=== PATIENT | female | born 1975 | race Caucasian/White ===

== ENCOUNTER 2021-04-15 10:08 | Inpatient (IN) | payer OTHER ==
[2021-04-14 11:21] LABS: BASOPHILS % (AUTO) 1 % (0-1); EOSINOPHILS % (AUTO) 3 % (1-7); LYMPHOCYTES % (AUTO) 27 % (22-44); MEAN CORPUSCULAR HEMOGLOBIN 32.7 pg (27.0-34.8); MEAN PLATELET VOLUME 8.8 fL (7.4-10.4); MONOCYTES % (AUTO) 8 % (2-9); NEUTROPHILS % (AUTO) 62 % (42-75); PLATELET COUNT 252 x10^3/uL (130-400); RED BLOOD COUNT 5.11 x10^6/uL (3.82-5.3); RED CELL DISTRIBUTION WIDTH 13.2 % (9.6-15.2)
[2021-04-14 11:30] LABS: ALANINE AMINOTRANSFERASE 31 U/L (12-78); ALBUMIN 3.6 g/dL (3.4-5.0); ANION GAP 6 mmol/L (5-15); CALCIUM 8.9 mg/dL (8.5-10.1); CHLORIDE 109 mmol/L (98-107); CREATININE 0.63 mg/dL (0.55-1.02)
[2021-04-14 11:35] LABS: ALKALINE PHOSPHATASE 62 U/L (45-117); BILIRUBIN,TOTAL 0.3 mg/dL (0.2-1.0); TOTAL PROTEIN 7.6 g/dL (6.4-8.2)
[2021-04-14 11:37] LABS: INTERNATIONAL NORMALIZED RATIO 0.97 (0.93-1.1); PROTHROMBIN TIME 10.4 Seconds (9.6-11.5)
[~2021-04-15] VITALS: Ht 175.3 cm; Wt 98.3 kg
[~2021-04-15 10:08] MED LIST: SERT100T PO
[2021-04-15] MEDS ORDERED: CHLORHEXIDINE 15 ML UDC PO ONE (11:00)
[2021-04-15] MEDS ORDERED: CEFOTETAN PMX 2GM/50ML 50 ML IVPB ONE (11:00)
[2021-04-15] MEDS: LACTATED RINGERS 1,000 ML IV SCH ×4 (11:00→23:57)
[2021-04-15] MEDS ORDERED: FENTANYL PF 250 MCG/5ML ONE (11:55)
[2021-04-15] MEDS ORDERED: MIDAZOLAM 1 MG/ML, 2ML ONE (11:55)
[2021-04-15] MEDS ORDERED: ACETAMINOPHEN 325 MG TABLET PO PRN (12:30)
[2021-04-15] MEDS ORDERED: OXYcodone 5 MG/5 ML ORAL.SOL UDC PO PRN (12:30)
[2021-04-15] MEDS ORDERED: MEPERIDINE/PF 25MG/0.5ML IVPush PRN (12:30)
[2021-04-15] MEDS ORDERED: LABETALOL 5MG/ML, 20ML IV PRN (12:30)
[2021-04-15] MEDS ORDERED: PROMETHAZINE 25 MG/ML, 1ML IVPush PRN (12:30)
[2021-04-15] MEDS ORDERED: hydrALAzine 20 MG/ML, 1ML IV PRN (12:30)
[2021-04-15] MEDS ORDERED: ONDANSETRON 2MG/ML, 2ML IVPush PRN ×2 (12:30→16:30)
[2021-04-15] MEDS ORDERED: DIPHENHYDRAMINE 50 MG/ML, 1ML IVPush PRN (12:30)
[2021-04-15] MEDS ORDERED: HYDROmorphone 1 MG/ML, 1ML INJ IVPush PRN (12:30)
[2021-04-15] MEDS ORDERED: METHYLENE BLUE 50 MG/10 ML AMP ONE (13:03)
[2021-04-15] MEDS ORDERED: HEPARIN 1,000 UNITS/ML, 30ML ONE (13:03)
[2021-04-15] MEDS ORDERED: ROCURONIUM 10 MG/ML,10ML ONE (14:01)
[2021-04-15] MEDS ORDERED: SUGAMMADEX 200 MG/2 ML IVPush ONE (14:01)
[2021-04-15] MEDS ORDERED: PROPOFOL 10 MG/ML, 20ML ONE (14:01)
[2021-04-15] MEDS ORDERED: DEXAMETHASONE 4 MG/ML, 1ML ONE (14:01)
[2021-04-15] MEDS ORDERED: ONDANSETRON 2MG/ML, 2ML ONE (14:01)
[2021-04-15] MEDS ORDERED: CEFOTETAN 2 GM ONE (14:01)
[2021-04-15] MEDS ORDERED: FENTANYL PF 100 MCG/2ML ONE (16:19)
[2021-04-15] MEDS ORDERED: OXYcodone 5 MG/5 ML ORAL.SOL UDC ONE (16:19)
[2021-04-15] MEDS: FENTANYL PF 100 MCG/2ML IV PRN ×2 (16:22→16:27)
[2021-04-15] MEDS ORDERED: MEPERIDINE/PF 25MG/ML,1ML ONE (16:26)
[2021-04-15] MEDS ORDERED: DIAZEPAM 5 MG/ML, 2ML ONE (16:26)
[2021-04-15] MEDS ORDERED: morphine SULFATE 10 MG/ML, 1ML IVPush PRN (16:30)
[2021-04-15] MEDS: DIAZEPAM 5 MG/ML, 2ML IVPush PRN ×2 (16:35→16:40)
[2021-04-15] MEDS ORDERED: PROMETHAZINE 25 MG/ML, 1ML ONE (16:39)
[2021-04-15] MEDS ORDERED: METHOCARBAMOL 1000MG/10 ML IV STA (16:48)
[2021-04-15] MEDS ORDERED: HYDROmorphone 2 MG/ML, 1ML ONE (16:53)
[2021-04-15] MEDS ORDERED: POTASSIUM CHLORIDE 20 MEQ in D5%-0.45% NACL 1,000 ML IV SCH (17:58)
[2021-04-15] MEDS ORDERED: METHOCARBAMOL 1,000 MG in DEXTROSE 5% 100 ML IV ONE (18:30)
[2021-04-15] MEDS: KETOROLAC 30 MG/1 ML IVPush SCH (18:56)
[2021-04-15 19:30] VITALS: BP 135/75
[2021-04-15] MEDS: FAMOTIDINE 20 MG/2 ML IV SCH (20:35)
[2021-04-15] MEDS: OXYcodone/APAP 7.5/325MG TABLET PO PRN (22:03)
[2021-04-15] MEDS ORDERED: PROCHLORPERAZINE 5 MG/ML, 2ML IVPush PRN (22:30)
[2021-04-16 00:12] VITALS: BP 135/84
[2021-04-16] MEDS: KETOROLAC 30 MG/1 ML IVPush SCH ×4 (00:48→18:23)
[2021-04-16 04:25] VITALS: BP 153/87
[2021-04-16 04:25] LABS: BASOPHILS % (AUTO) 0 % (0-1); EOSINOPHILS % (AUTO) 0 % (1-7); LYMPHOCYTES % (AUTO) 10 % (22-44); MEAN CORPUSCULAR HEMOGLOBIN 32.9 pg (27.0-34.8); MEAN CORPUSCULAR HGB CONC 34.5 g/dL (32.4-35.8); MEAN PLATELET VOLUME 8.7 fL (7.4-10.4); MONOCYTES % (AUTO) 11 % (2-9); NEUTROPHILS % (AUTO) 79 % (42-75); PLATELET COUNT 240 x10^3/uL (130-400); RED BLOOD COUNT 4.87 x10^6/uL (3.82-5.3); RED CELL DISTRIBUTION WIDTH 12.8 % (9.6-15.2)
[2021-04-16 04:35] LABS: ALBUMIN 3.2 g/dL (3.4-5.0); ANION GAP 8 mmol/L (5-15); CALCIUM 8.8 mg/dL (8.5-10.1); CHLORIDE 104 mmol/L (98-107); CREATININE 0.51 mg/dL (0.55-1.02)
[2021-04-16] MEDS: LACTATED RINGERS 1,000 ML IV SCH ×5 (05:00→20:20)
[2021-04-16 08:22] VITALS: BP 129/79
[2021-04-16] MEDS: FAMOTIDINE 20 MG/2 ML IV SCH ×2 (09:49→20:39)
[2021-04-16 13:13] VITALS: BP 146/92
[2021-04-16] MEDS: OXYcodone/APAP 7.5/325MG TABLET PO PRN (13:48)
[2021-04-16] MEDS ORDERED: KETOROLAC 10MG TABLET PO PRN (14:30)
[2021-04-16] MEDS ORDERED: SIMETHICONE 80 MG CHEW TAB PO PRN (15:30)
[2021-04-16 20:37] VITALS: BP 129/84
[2021-04-16] MEDS: DOCUSATE 100 MG CAPSULE PO SCH (20:41)
[2021-04-17] MEDS: LACTATED RINGERS 1,000 ML IV SCH ×7 (01:00→23:00)
[2021-04-17] MEDS: KETOROLAC 30 MG/1 ML IVPush SCH ×4 (01:12→20:18)
[2021-04-17] MEDS: OXYcodone/APAP 7.5/325MG TABLET PO PRN (01:26)
[2021-04-17 01:31] VITALS: BP 135/87
[2021-04-17 05:47] LABS: BASOPHILS % (AUTO) 1 % (0-1); EOSINOPHILS % (AUTO) 2 % (1-7); LYMPHOCYTES % (AUTO) 30 % (22-44); MEAN CORPUSCULAR HEMOGLOBIN 33.3 pg (27.0-34.8); MEAN CORPUSCULAR HGB CONC 34.7 g/dL (32.4-35.8); MEAN PLATELET VOLUME 8.9 fL (7.4-10.4); MONOCYTES % (AUTO) 15 % (2-9); NEUTROPHILS % (AUTO) 53 % (42-75); PLATELET COUNT 224 x10^3/uL (130-400); RED BLOOD COUNT 4.62 x10^6/uL (3.82-5.3); RED CELL DISTRIBUTION WIDTH 13.1 % (9.6-15.2)
[2021-04-17 07:25] VITALS: BP 134/85
[2021-04-17] MEDS: DOCUSATE 100 MG CAPSULE PO SCH ×2 (08:10→20:19)
[2021-04-17] MEDS: FAMOTIDINE 20 MG/2 ML IV SCH ×2 (08:10→20:18)
[2021-04-17 13:10] VITALS: BP 153/92
[2021-04-17 20:02] VITALS: BP 127/86
[2021-04-18] MEDS ORDERED: MAGNESIUM HYDROXIDE 8%, 30ML UDC PO PRN
[2021-04-18] MEDS: KETOROLAC 30 MG/1 ML IVPush SCH ×2 (01:40→08:17)
[2021-04-18 02:18] VITALS: BP 122/76
[2021-04-18] MEDS: LACTATED RINGERS 1,000 ML IV SCH ×3 (03:37→11:04)
[2021-04-18 07:48] VITALS: BP 133/90
[2021-04-18] MEDS: FAMOTIDINE 20 MG/2 ML IV SCH (08:17)
[2021-04-18] MEDS: DOCUSATE 100 MG CAPSULE PO SCH (08:18)
[2021-04-18 10:54] VITALS: BP 138/88
== END 2021-04-18 11:30 | disposition home or self-care (01) | DRG 743 ==
LOC: ORIP 10:08 → 4NE 17:57
PROVIDERS: ADMIT Specialist; ATTEND Specialist
PROC: 0UT10ZZ Resection of Left Ovary, Open Approach (ICD-10-PCS; 2021-04-15)
PROC: 0UT90ZZ Resection of Uterus, Open Approach (ICD-10-PCS; 2021-04-15)
PROC: 3E0M05Z Introduction of Adhesion Barrier into Peritoneal Cavity, Open Approach (ICD-10-PCS; 2021-04-15)
PROC: 0UT70ZZ Resection of Bilateral Fallopian Tubes, Open Approach (ICD-10-PCS; principal; 2021-04-15 12:30)
DX: D25.9 Leiomyoma of uterus, unspecified (principal); N92.4 Excessive bleeding in the premenopausal period; Z20.822 Contact with and (suspected) exposure to COVID-19; F32.9 Major depressive disorder, single episode, unspecified
CPT/HCPCS: 36415; 71046; 80048; 80053; 82040; 84703; 85025; 85610; 85730; 86304; 86850; 86900; 86923; 88302; 88309; 88331; 93005; G0378; J1100; J1170; J1644; J1885; J2175; J2250; J2405; J2550; J2704; J3010; J3360; Q9968; U0005; C1765; J0780; J2270; J2800; J7120; U0003